=== PATIENT | male | born 1960 | race Caucasian/White ===

== ENCOUNTER → 2022-04-21 | Day surgery (SDC) | payer OTHER ==
[~2022-04-21] VITALS: Ht 175.3 cm; Wt 99.9 kg
[~2022-04-21] MED LIST: ALLOPURINOL300 MG PO; ASPIRIN EC81 MG PO; CENTRUM ADULTS1 EACH PO; COZAAR50 MG PO; LOVAZA1 GM PO; VITAMIN B125000 MCG PO; ZOCOR20 MG PO; ZYRTEC10 M3 PO
[2022-04-21 08:24] LABS: HCT 43.3 % (42.0-52.0); HGB 14.3 g/dl (13.2-18.0); MCH 29.9 pg (25.0-31.0); MCV 90.4 fL (78.0-100.0); MPV 9.4 fL (6.0-9.5); RBC 4.79 M/uL (4.70-6.00); RDW 13.2 % (11.5-14.0)
[2022-04-21 08:52] LABS: ALBUMIN 4.1 g/dL (3.4-5.0); BILIRUBIN - TOTAL 0.4 mg/dL (0.2-1.0); BUN/CREAT RATIO (CALC) 13.7 RATIO; CREATININE 0.95 mg/dL (0.67-1.17); GLOBULIN (CALCULATION) 3.1 g/dL; POTASSIUM 4.4 mmol/L (3.5-5.1); TOTAL PROTEIN 7.2 g/dL (6.4-8.2)
== END | disposition home or self-care (01) ==
LOC: FAS 07:52
PROVIDERS: Surgery
DX: Z12.11 Encounter for screening for malignant neoplasm of colon (principal); I10 Essential (primary) hypertension; E78.00 Pure hypercholesterolemia, unspecified; Z79.82 Long term (current) use of aspirin; Z79.899 Other long term (current) drug therapy
CPT/HCPCS: 36415; 80053; J2704; J7120